=== PATIENT | female | born 1940 | race Caucasian/White ===

== ENCOUNTER 2017-09-16 12:11 | Outpatient (CLI) | payer MEDICARE | END 2017-09-16 12:12 | disposition home or self-care (01) | LOC: BICRAD 12:11 | PROVIDERS: ATTEND Internal Medicine Critical Care Medicine | DX: R06.00 Dyspnea, unspecified (principal); I70.90 Unspecified atherosclerosis | CPT/HCPCS: 71046 ==

== ENCOUNTER 2017-11-03 12:50 | Outpatient (CLI) | payer MEDICARE | END 2017-11-03 12:51 | disposition home or self-care (01) | LOC: BICRAD 12:50 | PROVIDERS: ATTEND Internal Medicine Critical Care Medicine | DX: I70.90 Unspecified atherosclerosis; R06.00 Dyspnea, unspecified | CPT/HCPCS: 71046 ==

== ENCOUNTER 2017-11-10 13:07 | Outpatient (CLI) | payer MEDICARE | END 2017-11-10 13:08 | disposition home or self-care (01) | LOC: BICMAMMO 13:07 | PROVIDERS: ATTEND Obstetrics & Gynecology | DX: Z12.31 Encounter for screening mammogram for malignant neoplasm of breast (principal); Z80.3 Family history of malignant neoplasm of breast | CPT/HCPCS: 77063; 77067 ==

== ENCOUNTER 2017-12-06 10:24 | Outpatient (CLI) | payer MEDICARE | END 2017-12-06 10:25 | disposition home or self-care (01) | LOC: BICRAD 10:24 | PROVIDERS: ATTEND Internal Medicine Critical Care Medicine | DX: R06.00 Dyspnea, unspecified (principal); J90 Pleural effusion, not elsewhere classified; R91.8 Other nonspecific abnormal finding of lung field | CPT/HCPCS: 71046 ==

== ENCOUNTER 2018-04-20 12:58 | Outpatient (CLI) | payer MEDICARE ==
--- NOTE | 2018-04-20 14:25 | RAD ---
TWO VIEWS OF THE CHEST: DATE: 04/20/18. COMPARISON: 12/06/17. HISTORY: Dyspnea. FINDINGS: There is increased linear interstitial density with pulmonary hyperinflation suggesting COPD in the [place] clinical setting, stable. No pneumothorax, pleural fluid, lobar consolidation, or alveolar socorro ma. IMPRESSION: Stable interstitial prominence and pulmonary hyperinflation with no focal consolidation or alveolar e lizandro seen. POS: [facility]
== END 2018-04-20 12:59 | disposition home or self-care (01) ==
LOC: RAD 12:58
PROVIDERS: ATTEND Internal Medicine Critical Care Medicine
DX: R06.00 Dyspnea, unspecified (principal); R91.8 Other nonspecific abnormal finding of lung field
CPT/HCPCS: 71046

== ENCOUNTER 2018-08-03 13:09 | Outpatient (CLI) | payer MEDICARE ==
--- NOTE | 2018-08-03 14:11 | RAD ---
PA AND LATERAL VIEWS OF CHEST: HISTORY: Dyspnea. 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 The heart size is normal. The aorta is tortuous. Chronic changes are again seen in the lung pizano bilaterally. No lobar consolidation, pneumothoraces, or pleural effusions are identified. There are mild degenerative changes in the spine. IMPRESSION: Stable exam. No acute process. POS: OFF
== END 2018-08-03 13:10 | disposition home or self-care (01) ==
LOC: RAD 13:09
PROVIDERS: ATTEND Internal Medicine Critical Care Medicine
DX: R06.00 Dyspnea, unspecified (principal)
CPT/HCPCS: 71046

== ENCOUNTER 2018-10-04 13:21 | Outpatient (CLI) | payer MEDICARE ==
--- NOTE | 2018-10-04 14:42 | RAD ---
PA AND LATERAL VIEWS CHEST: Date: 10/04/18 HISTORY: Dyspnea. FINDINGS: Comparison made with exam of 08/03/18. The heart size is normal. The aorta is tortuous. New mild infiltrate is seen at the left lung base. O ther mild chronic changes are again noted. No lobar consolidation, pneumothoraces, or pleural effusio ns are seen. IMPRESSION: Findings are suspicious for left basilar pneumonia. POS: OFF
== END 2018-10-04 13:22 | disposition home or self-care (01) ==
LOC: RAD 13:21
PROVIDERS: ATTEND Internal Medicine Critical Care Medicine
DX: R06.00 Dyspnea, unspecified (principal)
CPT/HCPCS: 71046

== ENCOUNTER 2018-11-13 15:41 | Outpatient (CLI) | payer MEDICARE ==
--- NOTE | 2018-11-13 17:04 | MMO ---
Bilateral MAMMO Bilat Screen [facility]. CLINICAL HISTORY: Patient is 78 years old and is seen for screening. The patient has the following family history of breast cancer: sister, at age 55, and Lung. The patient has no personal history of cancer. The patient has a history of left Excisional Biopsy in 2004 - benign. VIEWS: The views performed were: bilateral craniocaudal with tomosynthesis and bilateral mediolateral oblique with tomosynthesis. FILMS COMPARED: The present examination has been compared to prior imaging studies performed at [facility] on 04/19/2001, 09/19/2002 and 11/27/2003, and at [facility] on 09/25/2004, 09/28/2004, 08/08/2006, 08/31/2007, 09/03/2008, 09/09/2009, 09/17/2010, 09/09/2011, 09/19/2012, 10/02/2013, 10/15/2014, 10/23/2015, 10/28/2016 and 11/10/2017. MAMMOGRAM FINDINGS: The breasts are heterogeneously dense, which could obscure a lesion on mammography. There are stable benign appearing calcifications seen in both breasts. There are no suspicious masses, suspicious calcifications, or new areas of architectural distortion. IMPRESSION: THERE IS NO MAMMOGRAPHIC EVIDENCE OF MALIGNANCY. A ROUTINE FOLLOW-UP MAMMOGRAM IN 1 YEAR IS RECOMMENDED. THE RESULTS OF THIS EXAM WERE SENT TO THE PATIENT. ACR BI-RADS Category 2 - Benign finding MAMMOGRAPHY NOTE: 1. A negative mammogram report should not delay a biopsy if a dominant of clinically suspicious mass is present. 2. Approximately 10% to 15% of breast cancers are not detected by mammography. 3. Adenosis and dense breasts may obscure an underlying neoplasm.
== END 2018-11-13 15:42 | disposition home or self-care (01) ==
LOC: BICMAMMO 15:41
PROVIDERS: ATTEND Obstetrics & Gynecology
DX: Z12.31 Encounter for screening mammogram for malignant neoplasm of breast (principal)
CPT/HCPCS: 77063; 77067

== ENCOUNTER 2018-12-05 10:27 | Outpatient (CLI) | payer MEDICARE ==
--- NOTE | 2018-12-05 11:15 | BD ---
BONE DENSITOMETRY: Date: 12/05/18 HISTORY: Postmenopausal osteoporosis screening. FINDINGS: Lumbar Spine: BMD (g/cm2) L1 0.856 T-Score: -1.2 L2 1.041 T-Score: 0.1 L3 1.223 T-Score: 1.3 L4 1.136 T-Score: 0.7 Total 1.069 T-Score: 0.2 Left Femoral Neck: 0.769 T-Score: -0.7 Total Femur: 0.835 T-Score: -0.9 IMPRESSION: Bone mineral density of the lumbar spine and femoral neck are both within normal range. POS: [facility]
== END 2018-12-05 10:28 | disposition home or self-care (01) ==
LOC: BICMAMMO 10:27
PROVIDERS: ATTEND Internal Medicine
DX: Z13.820 Encounter for screening for osteoporosis (principal); Z78.0 Asymptomatic menopausal state
CPT/HCPCS: 77080

== ENCOUNTER 2021-01-12 15:16 | Outpatient (CLI) | payer MEDICARE | END 2021-01-12 15:17 | disposition home or self-care (01) | LOC: BICMAMMO 15:16 | PROVIDERS: ATTEND Obstetrics & Gynecology | DX: Z12.31 Encounter for screening mammogram for malignant neoplasm of breast (principal); Z80.3 Family history of malignant neoplasm of breast; Z91.89 Other specified personal risk factors, not elsewhere classified | CPT/HCPCS: 77063; 77067 ==

== ENCOUNTER 2021-08-04 15:06 | Outpatient (CLI) | payer MEDICARE | END 2021-08-04 15:07 | disposition home or self-care (01) | LOC: BICMAMMO 15:06 | PROVIDERS: ATTEND Internal Medicine | DX: Z13.820 Encounter for screening for osteoporosis (principal); Z78.0 Asymptomatic menopausal state; M85.88 Other specified disorders of bone density and structure, other site | CPT/HCPCS: 77080 ==

== ENCOUNTER 2022-02-09 14:28 | Outpatient (CLI) | payer MEDICARE | END 2022-02-09 14:29 | disposition home or self-care (01) | LOC: BICMAMMO 14:28 | PROVIDERS: ATTEND Obstetrics & Gynecology | DX: Z12.31 Encounter for screening mammogram for malignant neoplasm of breast (principal); Z80.3 Family history of malignant neoplasm of breast; Z80.1 Family history of malignant neoplasm of trachea, bronchus and lung; Z91.89 Other specified personal risk factors, not elsewhere classified | CPT/HCPCS: 77063; 77067 ==

== ENCOUNTER 2022-05-24 09:41 | Outpatient (CLI) | payer MEDICARE ==
[2022-05-24 10:37] LABS: Hemoglobin 14.2 g/dL (12.0-15.5); Mean Corpuscular HGB CONC 33.9 g/dL (32.0-36.0); Mean Corpuscular Volume 94.4 fl (81.6-98.3); Mean Platelet Volume 9.4 fl (7.4-10.4); Platelet Count 360 10x3/uL (150-450); RBC Distribution Width 13.7 % (11.5-14.5); Red Blood Cell (RBC) Count 4.44 10x6/uL (3.90-5.03)
[2022-05-24 11:06] LABS: Anion Gap 13 mmol/L (10-20); BUN (Urea Nitrogen) 17 mg/dL (9.8-20.1); Calc. Creatinine Clearance 0 mL/min (70-130); Calcium 9.8 mg/dL (7.8-10.44); Carbon Dioxide 28 mmol/L (23-31); Chloride 102 mmol/L (98-107); Estimated GFR 86; Glucose 93 mg/dL (83-110); PTT 24.9 sec (22.0-33.0); Potassium 4.3 mmol/L (3.5-5.1); Sodium 139 mmol/L (136-145)
== END 2022-05-24 09:42 | disposition home or self-care (01) ==
LOC: LABBT 09:41
PROVIDERS: ATTEND Surgery
DX: Z01.818 Encounter for other preprocedural examination (principal); M48.062 Spinal stenosis, lumbar region with neurogenic claudication; M51.16 Intervertebral disc disorders with radiculopathy, lumbar region
CPT/HCPCS: 80048; 85027; 85610; 85730; 93005; 93010

== ENCOUNTER 2022-05-27 06:04 | Inpatient (IN) | payer MEDICARE ==
[2022-05-27] MEDS ORDERED: Thrombin 5000 UNITS/5 ML VIAL ONE (06:25)
[2022-05-27] MEDS ORDERED: Scopolamine 1.5 mg/72 hour Patch ONE (06:45)
[2022-05-27] MEDS ORDERED: fentaNYL Citrate/PF 100 MCG/2 ML SYRINGE ONE (06:57)
[2022-05-27] MEDS ORDERED: Phenylephrine 10 MG/ML VIAL ONE (06:57)
[2022-05-27] MEDS ORDERED: Clindamycin/D5W 900 mg/50 ml Premix Bag ONE (07:09)
[2022-05-27] MEDS ORDERED: ePHEDrine 50 MG/ML VIAL ONE (07:33)
[2022-05-27] MEDS ORDERED: PROPOFOL 200 MG/20 ML VIAL ONE (07:33)
[2022-05-27] MEDS ORDERED: Ondansetron PF 4 MG/2 ML Vial ONE (07:33)
[2022-05-27] MEDS ORDERED: Dexamethasone 20 MG/5 ML VIAL ONE (07:33)
[2022-05-27] MEDS ORDERED: Rocuronium Bromide 10 MG/ML (10ML VIAL) ONE (07:33)
[2022-05-27] MEDS ORDERED: SUGAMMADEX SODIUM 200 MG/2 ML VIAL ONE (10:25)
[2022-05-27] MEDS ORDERED: diphenhydrAMINE 25 MG CAP PO PRN (10:33)
[2022-05-27] MEDS ORDERED: Acetaminophen 325 MG TAB PO PRN (10:33)
[2022-05-27] MEDS ORDERED: traMADol HCl 50 MG TAB PO PRN (10:33)
[2022-05-27] MEDS ORDERED: Morphine 2 MG/ML VIAL SLOW IVP PRN (10:33)
[2022-05-27] MEDS ORDERED: Ondansetron PF 4 MG/2 ML Vial IVP PRN (10:33)
[2022-05-27] MEDS ORDERED: ePHEDrine Sulfate 50 MG/10 ML VIAL ONE (10:36)
[2022-05-27] MEDS ORDERED: Bisacodyl 5 MG TAB PO PRN (10:36)
[2022-05-27] MEDS ORDERED: guaiFENesin ER 600 MG TAB PO PRN (10:37)
[2022-05-27] MEDS ORDERED: Albuterol 200 PUFF (6.7GM INHALER) INH PRN (10:37)
[2022-05-27] MEDS ORDERED: hydrALAZINE 20 MG/ML VIAL SLOW IVP PRN (10:38)
[2022-05-27] MEDS ORDERED: Promethazine HCl 12.5 MG in Sodium Chloride 0.9% 50 ML IVPB PRN (10:39)
[2022-05-27] MEDS ORDERED: Promethazine HCl 25 MG/ML VIAL IM PRN (10:43)
[2022-05-27] MEDS ORDERED: Promethazine HCl 25 MG/ML VIAL IVPB PRN (10:43)
[2022-05-27] MEDS ORDERED: Ondansetron HCl/PF 4 MG/2 ML Vial IVP PRN (10:43)
[2022-05-27] MEDS ORDERED: FENTANYL 50 MCG/ML VIAL 50 MCG/ML VIAL ONE ×5 (10:54→11:56)
[2022-05-27] MEDS ORDERED: HYDROmorphone 0.5 MG/0.5 ML SYRINGE ONE ×3 (12:13→12:38)
[2022-05-27] MEDS ORDERED: diphenhydrAMINE 50 MG/ML VIAL ONE (12:38)
[2022-05-27] MEDS ORDERED: diphenhydrAMINE 50 MG/ML VIAL IVP PRN ×2 (13:19→17:11)
[2022-05-27 14:21] VITALS: BMI 22.6
[2022-05-27] MEDS: Ketorolac Tromethamine 30 MG/ML VIAL IVP PRN (16:50)
[2022-05-27] MEDS: Clindamycin/D5W 900 MG in Premix Bag 1 BAG IVPB SCH ×2 (16:51→23:23)
[2022-05-27] MEDS: Sodium Chloride 0.9% 1,000 ML IV SCH ×2 (16:52→23:35)
[2022-05-27] MEDS ORDERED: Bacitracin 1 PK TOP PRN (17:07)
[2022-05-27] MEDS: Docusate 100 MG CAP PO SCH (19:20)
[2022-05-27] MEDS: Loratadine 10 MG TAB PO SCH (19:20)
[2022-05-27] MEDS: Fluticasone Propionate Nasal Spray 16 gm Bottle NASAL SCH (19:20)
[2022-05-27] MEDS: Ondansetron ODT 4 MG TAB PO PRN (19:38)
[2022-05-27] MEDS: tiZANidine HCl 4 MG TAB PO PRN (19:39)
[2022-05-27] MEDS: HYDROcodone/Acetaminophen 7.5/325 mg Tablet PO PRN (19:39)
[2022-05-28 05:58] LABS: #Eosinphils 0.1 thou/uL (0.0-0.7); #Lymphocytes 1.9 thou/uL (1.20-3.40); #Monocytes 1.4 thou/uL (0.11-0.59); #Neutrophils 9.3 thou/uL (1.40-6.50); %Basophils 0.1 % (0.0-1.0); %Eosinophils 0.4 % (0.0-10.0); %Lymphocytes 15.3 % (21.0-51.0); %Monocytes 11.2 % (0.0-10.0); Hemoglobin 11.6 g/dL (12.0-16.0); Mean Corpuscular HGB CONC 31.2 g/dL (32.0-36.0); Mean Corpuscular Volume 99.5 fl (78.0-98.0); Mean Platelet Volume 7.3 fL (7.4-10.4); Platelet Count 286 thou/uL (130-400); RBC Distribution Width 12.5 % (11.5-14.5); Red Blood Cell (RBC) Count 3.73 mill/uL (4.20-5.40); White Blood Cell (WBC) Count 12.7 thou/uL (4.8-10.8)
[2022-05-28 06:17] LABS: Anion Gap 8 mmol/L (10-20); BUN (Urea Nitrogen) 17 mg/dL (9.8-20.1); Calc. Creatinine Clearance 61 mL/min (70-130); Calcium 8.8 mg/dL (7.8-10.44); Carbon Dioxide 29 mmol/L (23-31); Chloride 104 mmol/L (98-107); Estimated GFR 86; Glucose 112 mg/dL (83-110); Potassium 4.7 mmol/L (3.5-5.1); Sodium 136 mmol/L (136-145)
[2022-05-28] MEDS: Levothyroxine Sodium 112 MCG TAB PO SCH (06:26)
[2022-05-28] MEDS: Ketorolac Tromethamine 30 MG/ML VIAL IVP PRN ×2 (06:28→15:18)
[2022-05-28] MEDS: tiZANidine HCl 4 MG TAB PO PRN ×2 (08:36→19:52)
[2022-05-28] MEDS: HYDROcodone/Acetaminophen 7.5/325 mg Tablet PO PRN ×2 (08:37→19:52)
[2022-05-28] MEDS: Ondansetron ODT 4 MG TAB PO PRN ×2 (08:39→19:51)
[2022-05-28] MEDS: Docusate 100 MG CAP PO SCH ×2 (08:46→19:52)
[2022-05-28] MEDS: Fluticasone Propionate Nasal Spray 16 gm Bottle NASAL SCH ×2 (10:47→19:17)
[2022-05-28] MEDS: Loratadine 10 MG TAB PO SCH (19:17)
[2022-05-28] MEDS: Sodium Chloride 0.9% 1,000 ML IV SCH (19:17)
[2022-05-29] MEDS: Acetaminophen/Codeine 30-300mg Tablet PO PRN ×3 (04:26→15:06)
[2022-05-29] MEDS: Levothyroxine Sodium 112 MCG TAB PO SCH (05:37)
[2022-05-29] MEDS: Fluticasone Propionate Nasal Spray 16 gm Bottle NASAL SCH ×2 (07:54→19:40)
[2022-05-29] MEDS: Docusate 100 MG CAP PO SCH ×2 (07:54→19:41)
[2022-05-29] MEDS: Polyethylene Glycol 3350 17 GM Packet PO PRN ×2 (07:58→19:44)
[2022-05-29] MEDS: Ondansetron ODT 4 MG TAB PO PRN ×2 (15:06→21:08)
[2022-05-29] MEDS: Sodium Chloride 0.9% 1,000 ML IV SCH ×2 (15:58→19:38)
[2022-05-29] MEDS: Loratadine 10 MG TAB PO SCH (19:40)
[2022-05-29] MEDS: tiZANidine HCl 4 MG TAB PO PRN (21:08)
[2022-05-29] MEDS: HYDROcodone/Acetaminophen 7.5/325 mg Tablet PO PRN (21:10)
[2022-05-30] MEDS: Levothyroxine Sodium 112 MCG TAB PO SCH (06:52)
[2022-05-30] MEDS: Docusate 100 MG CAP PO SCH (08:32)
[2022-05-30] MEDS: Acetaminophen/Codeine 30-300mg Tablet PO PRN (08:33)
[2022-05-30] MEDS: Fluticasone Propionate Nasal Spray 16 gm Bottle NASAL SCH (08:34)
[2022-05-30] MEDS: Sodium Chloride 0.9% 1,000 ML IV SCH (09:44)
[2022-05-30] MEDS: Polyethylene Glycol 3350 17 GM Packet PO PRN (11:28)
[2022-05-30 11:56] VITALS: BP 118/72; TEMP 99.7
== END 2022-05-30 13:30 | DRG 517 ==
LOC: SDC 06:04 → SURG A 13:35 → OBSVTOIN 05-28 13:42 → SURG A 05-29 16:12
PROVIDERS: ADMIT Surgery; ATTEND Surgery
PROC: 01NB0ZZ Release Lumbar Nerve, Open Approach (ICD-10-PCS; principal; 2022-05-28)
PROC: 01NR0ZZ Release Sacral Nerve, Open Approach (ICD-10-PCS; 2022-05-28)
DX: M48.062 Spinal stenosis, lumbar region with neurogenic claudication (principal); M54.16 Radiculopathy, lumbar region; M51.26 Other intervertebral disc displacement, lumbar region; Z20.822 Contact with and (suspected) exposure to COVID-19; Z88.1 Allergy status to other antibiotic agents; Z88.0 Allergy status to penicillin
CPT/HCPCS: 36415; 80048; 85025; 93970; 96374; 96376; C1776; G0378; J1100; J1170; J1200; J1885; J2370; J2405; J2704; J3010; J3370; J3490; J7050; Q0162

== ENCOUNTER 2022-11-29 15:03 | Outpatient (CLI) | payer MEDICARE | END 2022-11-29 15:04 | disposition home or self-care (01) | LOC: BICRAD 15:03 | PROVIDERS: ATTEND Internal Medicine | DX: J98.11 Atelectasis (principal) | CPT/HCPCS: 71046 ==

== ENCOUNTER 2023-01-11 05:58 | Day surgery (SDC) | payer MEDICARE ==
[2023-01-07 12:43] VITALS: BMI 24.2
[2023-01-11] MEDS ORDERED: Sodium Chloride 0.9% 100 ML ONE (06:16)
[2023-01-11] MEDS ORDERED: Ketorolac Tromethamine 30 MG/ML VIAL ONE (06:16)
[2023-01-11] MEDS ORDERED: Acetaminophen 500 MG TAB ONE (06:16)
[2023-01-11] MEDS ORDERED: CEFAZOLIN 2 GM VIAL ONE (06:16)
[2023-01-11] MEDS ORDERED: Bupivacaine/Epinephrine 0.25% 30 ML VIAL ONE (06:28)
[2023-01-11] MEDS ORDERED: fentaNYL PF 100 MCG/2 ML SYRINGE ONE (06:46)
[2023-01-11] MEDS ORDERED: Famotidine 20 MG TAB ONE (07:29)
[2023-01-11] MEDS ORDERED: Famotidine/PF 20 mg/2ml Vial ONE ×2 (07:30→07:38)
[2023-01-11] MEDS ORDERED: Albuterol HFA (OR) 200 PUFF INH ONE (07:38)
[2023-01-11] MEDS ORDERED: Lidocaine 1% PF 5 ML VIAL ONE (07:47)
[2023-01-11] MEDS ORDERED: Ondansetron PF 4 MG/2 ML Vial ONE (07:47)
[2023-01-11] MEDS ORDERED: NEOSTIGMINE 3 MG/3 ML SYR 3 MG/3 ML SYRINGE ONE (07:47)
[2023-01-11] MEDS ORDERED: GLYCOPYRROLATE/PF 0.2 MG/ML VIAL ONE (07:47)
[2023-01-11] MEDS ORDERED: Rocuronium Bromide 10 MG/ML (10ML VIAL) ONE (07:47)
[2023-01-11] MEDS ORDERED: Dexamethasone 20 MG/5 ML VIAL ONE (07:47)
[2023-01-11] MEDS ORDERED: PROPOFOL 200 MG/20 ML VIAL ONE (07:47)
[2023-01-11] MEDS ORDERED: MINERAL OIL/WHITE PETROLATUM 3.5 GM TUBE ONE (07:52)
[2023-01-11] MEDS ORDERED: HYDROcodone/Acetaminophen 5/325 mg Tablet ONE (11:25)
== END 2023-01-11 12:15 | disposition home or self-care (01) ==
LOC: SDC 05:58
PROVIDERS: ATTEND Specialist
PROC: 0YU64JZ Supplement Left Inguinal Region with Synthetic Substitute, Percutaneous Endoscopic Approach (ICD-10-PCS; principal; 2023-01-11)
DX: K40.90 Unilateral inguinal hernia, without obstruction or gangrene, not specified as recurrent (principal); Z88.0 Allergy status to penicillin; Z88.1 Allergy status to other antibiotic agents
CPT/HCPCS: 49650; C1781; J3490; J1100; J1885; J2405; J2704; S0028

== ENCOUNTER 2023-03-21 13:40 | Outpatient (CLI) | payer MEDICARE | END 2023-03-21 13:41 | disposition home or self-care (01) | LOC: BICMAMMO 13:40 | PROVIDERS: ATTEND Obstetrics & Gynecology | DX: Z12.31 Encounter for screening mammogram for malignant neoplasm of breast (principal); Z80.3 Family history of malignant neoplasm of breast; Z80.1 Family history of malignant neoplasm of trachea, bronchus and lung; Z91.89 Other specified personal risk factors, not elsewhere classified | CPT/HCPCS: 77063; 77067 ==